=== PATIENT | male | born 2000 | race African-American/Black ===

== ENCOUNTER 2024-09-11 22:36 | Emergency (ER) | payer SELFPAY ==
[~2024-09-11] VITALS: Ht 182.9 cm; Wt 70.0 kg
[2024-09-11 22:39] VITALS: TEMP 36.6; O2SAT 99
[2024-09-11 23:24] LABS: CHLORIDE 104 mEq/L (98-107); POTASSIUM 3.6 mEq/L (3.5-5.1); SODIUM 142 mEq/L (136-145)
[2024-09-11 23:25] LABS: CARBON DIOXIDE 26 mEq/L (21-32)
[2024-09-11 23:26] LABS: BASOPHILS % 0.5 % (0.0-2.0); CALCIUM 9.8 mg/dL (8.7-10.4); EOSINOPHILS % 0.9 % (0.0-5.0); HEMOGLOBIN. 14.6 g/dL (14.0-18.0); LYMPHOCYTES % 34.6 % (20.0-50.0); MEAN CORPUSCULAR HGB CONC 33.9 g/dL (31.0-37.0); MEAN CORPUSCULAR VOLUME 88.5 fL (80.0-94.0); MEAN PLATELET VOLUME 7.5 fl (7.4-10.4); MONOCYTES % 6.1 % (2.0-8.0); NEUTROPHILS % 57.9 % (40.0-76.0); PLATELET 265 x1000/uL (130-400); RED BLOOD CELL COUNT 4.86 mill/uL (4.7-6.1); RED CELL DISTRIBUTION WIDTH 13.4 % (11.6-14.6); WHITE BLOOD COUNT 8.2 x1000/uL (4.5-11.0)
[2024-09-11] MEDS: SODIUM CHLORIDE 0.9% 1,000 ML IV ONE (23:27)
[2024-09-11] MEDS: ONDANSETRON HCL 4MG/2ML INJ IV ONE (23:27)
[2024-09-11] MEDS: PANTOPRAZOLE SODIUM 40 MG/VIAL IV ONE (23:27)
[2024-09-11 23:30] LABS: CREATININE 1.2 mg/dL (0.6-1.3); GLUCOSE 95 mg/dL (70-105)
[2024-09-11 23:31] LABS: ETHANOL BLOOD 107 mg/dL (<10); UREA NITROGEN BLOOD 11 mg/dL (9-23)
[2024-09-11 23:32] LABS: ACETAMINOPHEN < 2 ug/mL (10-30)
[2024-09-12 01:12] LABS: CLARITY URINE CLEAR (CLEAR); COLOR URINE YELLOW (YELLOW); GLUCOSE URINE NEGATIVE (NEGATIVE); KETONES URINE NEGATIVE (NEGATIVE); LEUKOCYTE ESTERASE URINE NEGATIVE (NEGATIVE); NITRITE URINE NEGATIVE (NEGATIVE); OCCULT BLOOD URINE NEGATIVE (NEGATIVE); PH URINE 7.5 (4.5-8.0); PROTEIN URINE NEGATIVE (NEGATIVE); SPECIFIC GRAVITY URINE 1.005 (1.005-1.030); UROBILINOGEN URINE 0.2 E.U./dL (0.2-1.0)
[2024-09-12 01:22] LABS: *AMPHETAMINES SCREEN URINE NEGATIVE (NEGATIVE); *BARBITURATES SCREEN URINE NEGATIVE (NEGATIVE); *BENZODIAZEPINES SCREEN URINE NEGATIVE (NEGATIVE); *COCAINE SCREEN URINE NEGATIVE (NEGATIVE); CANNABINOID URINE SCREEN PRESUMPTIVE POSITIVE (NEGATIVE); ECSTASY MDMA SCREEN URINE NEGATIVE (NEGATIVE); METHADONE URINE SCREEN NEGATIVE (NEGATIVE); OPIATES URINE SCREEN NEGATIVE (NEGATIVE); PHENCYCLIDINE URINE SCREEN NEGATIVE (NEGATIVE)
[2024-09-12] MEDS ORDERED: PANT40SU MT (01:23)
[2024-09-12] MEDS ORDERED: ONDA4TAB50 MT (01:23)
[2024-09-12 01:41] VITALS: BP 108/70; PULSE 83; RESP 12; O2SAT 100
== END 2024-09-12 02:02 | disposition home or self-care (01) ==
LOC: ER 22:52
DX: F32.A Depression, unspecified (principal); K29.70 Gastritis, unspecified, without bleeding; Z79.899 Other long term (current) drug therapy; W01.0XXA Fall on same level from slipping, tripping and stumbling without subsequent striking against object, initial encounter; Y93.89 Activity, other specified; Y92.89 Other specified places as the place of occurrence of the external cause; Y99.8 Other external cause status
CPT/HCPCS: 80048; 80307; 80329; 80320; 83690; 85025; 36415; 96365; 96375; 99284; 80305; 81003; J2405; J2470; J7030; G0480

== ENCOUNTER 2025-01-29 11:18 | Emergency (ER) | payer SELFPAY ==
[~2025-01-29] VITALS: Ht 177.8 cm; Wt 77.0 kg
[~2025-01-29 11:18] MED LIST: ONDA4TAB50 MT; PANT40SU MT
[2025-01-29 11:24] VITALS: O2SAT 99
[2025-01-29 11:40] VITALS: BP 122/78; PULSE 76; RESP 18; TEMP 36.9; O2SAT 100
[2025-01-29] MEDS: CEFTRIAXONE SODIUM 500MG VIAL IM ONE (12:30)
== END 2025-01-29 12:56 | disposition left against medical advice (07) ==
LOC: ER 11:18
DX: Z11.3 Encounter for screening for infections with a predominantly sexual mode of transmission (principal); Z79.899 Other long term (current) drug therapy
CPT/HCPCS: 99282; J0696